=== PATIENT | female | born 1985 | race Caucasian/White ===

== ENCOUNTER 2017-01-18 11:14 | Observation (INO) | payer OTHER ==
--- NOTE | 2017-01-18 12:20 | OBPROG ---
OBG Labor Progress Note Assessment/Plan: Assessment: cat 1 fhr' denies pain/ irregular contractions seeing spots before her eyes "I just dont feel well" from the office to labor and delivery for elevated bp evaluation BP 130/84/140/90 here in labor and delivery waiting for [facility] lab results regular diet random P/C urine Plan:[facility] evaluation 01/18/17 12:17 Subjective: I am seeing spots. I am not feeling well. This has been going on for a few days. My friend took my bp at home and it was elevated. - Physical Exam General Appearance: WD/WN, alert, no apparent distress Respiratory: chest non-tender, lungs clear, normal breath sounds Cardiac/Chest: regular rate, rhythm Abdomen: normal bowel sounds Extremities: normal range of motion, Tee's sign (negative bilaterally) DTR- Lower Extremities: Knee (R): 1+, Knee (L): 1+ (no clonus bilaterally) Skin: normal color, warm/dry Neuro/Psych: no motor/sensory deficits, alert, normal mood/affect, oriented x 3 ICD10 Worksheet Patient Problems: Problems Problem Status Onset (spontaneous vaginal delivery) Acute
[2017-01-18 12:27] LABS: % IMMATURE GRANULYOCYTES 0.6 % (0.0-1.1); ABSOLUTE IMMATURE GRANULOCYTES 0.05 10^3/uL (0.00-0.10); ADD DIFF? NO; ADD MORPH? NO; ADD SCAN? NO; ATYPICAL LYMPHOCYTE FLAG 0 (0-99); FRAGMENT RBC FLAG 0 (0-99); HEMATOCRIT 37.9 % (38.0-47.0); HEMOGLOBIN 13.2 g/dL (12.6-16.3); LEFT SHIFT FLG 0 (0-99); LIPEMIA HEMOLYSIS FLAG 90 (0-99); MEAN CELL HEMOGLOBIN CONCENTR. 34.8 g/dL (32.4-36.7); MEAN CELL VOLUME 86.1 fL (81.5-99.8); MEAN PLATELET VOLUME 10.6 fL (8.7-11.7); PLATELET CLUMPS FLAG 0 (0-99); PLATELET COUNT 210 10^3/uL (150-400); RED CELL DISTRIBUTION WIDTH 11.9 % (11.5-15.2)
[2017-01-18 12:41] LABS: ALANINE AMINOTRANSFERASE 24 IU/L (9-52); ASPARTATE AMINOTRANSFERASE 18 IU/L (14-46); BILIRUBIN,TOTAL 0.4 mg/dL (0.1-1.4); BILIRUBIN-CONJUGATED 0.3 mg/dL (0.0-0.5); BILIRUBIN-UNCONJUGATED 0.1 mg/dL (0.0-1.1); CREATININE 0.6 mg/dL (0.6-1.0); GLOMERULAR FILTRATION RATE > 60; LACTATE DEHYDROGENASE 393 IU/L (313-618); URIC ACID 5.4 mg/dL (2.5-6.8)
[2017-01-18 13:13] LABS: COLOR PALE YELLOW; LEUKOCYTE ESTERASE,URINE NEGATIVE (NEGATIVE); NITRITE,URINE NEGATIVE (NEGATIVE)
[2017-01-18] MEDS ORDERED: BETAMETHASONE IM SYRINGE IM ONE (14:00)
[2017-01-18] MEDS ORDERED: TERBUTALINE SULFATE 1 MG/ML VIAL IV PRN (14:00)
[2017-01-18] MEDS ORDERED: OLIVE OIL 118 ML BTL MISC PRN (14:00)
[2017-01-18] MEDS ORDERED: LR 1,000 ML IV PRN (14:00)
[2017-01-18] MEDS ORDERED: EPSOM SALT 454 GM TP PRN (14:00)
[2017-01-18] MEDS ORDERED: IBUPROFEN 600 MG TAB PO PRN (14:00)
[2017-01-18] MEDS ORDERED: OXYTOCIN/RINGERS LACTATE 1,000 ML IV PRN (14:00)
[2017-01-18 14:03] LABS: RANDOM URINE PROTEIN 12 mg/dL (0-11)
--- NOTE | 2017-01-18 15:50 | GHP ---
[f rep st] HISTORY AND PHYSICAL DATE OF ADMISSION: 01/18/2017 Patient comes into the office with complaints of just not feeling right. [place]. Elevated blood pressures at home 140/90. States feeling positive movement. Denies contractions. Denies leaking of fluid. Has routinely Seen [facility] during her . With previous had one elevated BP broke bag of water same day and delivered. Patient is a 31-year-old, 2, para 1, with an EDC of 02/09/2017, which gives her a gestational age of 36 and 6/7 weeks. The patient has been seen at [facility] since 8 weeks gestation. MEDICAL HISTORY: Patient has a history of mild anxiety and depression in her first . Patient states once on labor and delivery that she had some elevated blood pressures on the day that she delivered. History of a hemorrhage with her first . FAMILY HISTORY: Benign. Social history no smoking, no drug use is GYNECOLOGICAL HISTORY: Noncontributory. PRESENT HISTORY: Patient has been followed for growth. LABORATORY DATA: At this time, I am unable to give you the labs. PHYSICAL ASSESSMENT: GENERAL: Patient is awake, alert, oriented x3. LUNGS: Clear bilaterally. GI: Bowel sounds are positive in all 4 quadrants. EXTREMITIES: DTRs are 1+ bilaterally with no clonus. Homans sign is negative bilaterally. Patient denies PIH symptoms other than an irregular headache with irregular scotomata. Patient denies epigastric pain. PLAN OF CARE: 1. Consult with Dr. Luz Elena Lopez. 2. Betamethasone x2 doses./ PIH labs wNL 3. Blood pressures for 4 hours and reassessment for plan of care. 4. BP came down over the 4 h of observation of BP 5, Fu tomorrow here for BP check and #2 betamethasone 6. Fu in office wednesday for visit 7. Patient ok with POC /[id number]/MODL MTDD
--- NOTE | 2017-01-18 18:01 | OBPROG ---
OBG Labor Progress Note Assessment/Plan: Assessment: cat 1 fhr' denies pain/ irregular contractions seeing spots before her eyes over the weekend denies while here in the hospital "I just dont feel well" from the office to labor and delivery for elevated bp evaluation BP 130/84/140/90 here in labor and deliverybetter after sitting around in labor and delivery pih labs wnl regular diet random P/C urine Plan:Better bp after several hours. Dischagre to home with instructions fu tomorrow for second betamethasone and bp evaluation. Fu wednesday in the office. Discussed resting at home and occasional bp checks when not feeling well. Discussed leaking bleeding cramping and pih symptoms verbalized understanding 01/18/17 12:17 01/18/17 17:58 Objective: 01/18/17 12:00 01/18/17 12:00 Uric Acid 5.4 mg/dL (2.5-6.8) 01/18/17 12:00 Total Bilirubin 0.4 mg/dL (0.1-1.4) 01/18/17 12:00 Conjugated Bilirubin 0.3 mg/dL (0.0-0.5) 01/18/17 12:00 Unconjugated Bilirubin 0.1 mg/dL (0.0-1.1) 01/18/17 12:00 AST 18 IU/L (14-46) 01/18/17 12:00 ALT 24 IU/L (9-52) 01/18/17 12:00 Lactate Dehydrogenase 393 IU/L (313-618) 01/18/17 12:00 Oxytocin Orders Assessment - Pre-Induction/Augmentation Assessment Gestational Age: 36 week(s) and 6 day(s) ICD10 Worksheet Patient Problems: Problems Problem Status Onset (spontaneous vaginal delivery) Acute
== END 2017-01-18 16:10 | disposition home or self-care (01) ==
LOC: FLD 11:14
PROVIDERS: ADMIT Advanced Practice Midwife; ATTEND Advanced Practice Midwife
DX: O26.893 Other specified pregnancy related conditions, third trimester (principal); R03.0 Elevated blood-pressure reading, without diagnosis of hypertension; H53.419 Scotoma involving central area, unspecified eye; R51 Headache; Z3A.36 36 weeks gestation of pregnancy
CPT/HCPCS: 59025; G0378; J0702

== ENCOUNTER 2017-01-19 11:03 | Observation (INO) | payer OTHER ==
[2017-01-19 12:28] LABS: ALANINE AMINOTRANSFERASE 23 IU/L (9-52); ASPARTATE AMINOTRANSFERASE 22 IU/L (14-46); BILIRUBIN,TOTAL 0.4 mg/dL (0.1-1.4); BILIRUBIN-CONJUGATED 0.3 mg/dL (0.0-0.5); BILIRUBIN-UNCONJUGATED 0.1 mg/dL (0.0-1.1); CREATININE 0.6 mg/dL (0.6-1.0); GLOMERULAR FILTRATION RATE > 60; LACTATE DEHYDROGENASE 417 IU/L (313-618); URIC ACID 5.4 mg/dL (2.5-6.8)
[2017-01-19 12:36] LABS: % IMMATURE GRANULYOCYTES 0.7 % (0.0-1.1); ABSOLUTE IMMATURE GRANULOCYTES 0.11 10^3/uL (0.00-0.10); ADD DIFF? NO; ADD MORPH? NO; ADD SCAN? NO; ATYPICAL LYMPHOCYTE FLAG 0 (0-99); FRAGMENT RBC FLAG 0 (0-99); HEMATOCRIT 38.4 % (38.0-47.0); HEMOGLOBIN 13.4 g/dL (12.6-16.3); LEFT SHIFT FLG 0 (0-99); LIPEMIA HEMOLYSIS FLAG 90 (0-99); MEAN CELL HEMOGLOBIN 30.2 pg (27.9-34.1); MEAN CELL HEMOGLOBIN CONCENTR. 34.9 g/dL (32.4-36.7); MEAN CELL VOLUME 86.5 fL (81.5-99.8); MEAN PLATELET VOLUME 10.8 fL (8.7-11.7); PLATELET CLUMPS FLAG 0 (0-99); PLATELET COUNT 233 10^3/uL (150-400); RED BLOOD CELL COUNT 4.44 10^6/uL (4.18-5.33); RED CELL DISTRIBUTION WIDTH 11.9 % (11.5-15.2)
[2017-01-19] MEDS ORDERED: BETAMETHASONE IM SYRINGE IM ONE (15:30)
== END 2017-01-19 15:20 | disposition home or self-care (01) ==
LOC: INTOOBSV 11:03 → FLD 11:03
PROVIDERS: ADMIT Obstetrics & Gynecology; ATTEND Obstetrics & Gynecology
DX: O99.89 Other specified diseases and conditions complicating pregnancy, childbirth and the puerperium (principal); Z3A.37 37 weeks gestation of pregnancy
CPT/HCPCS: 59025; G0378; J0702

== ENCOUNTER 2017-01-30 14:31 | Inpatient (IN) | payer OTHER ==
[2017-01-30] MEDS ORDERED: OXYTOCIN/RINGERS LACTATE 1,000 ML IV PRN (14:50)
[2017-01-30] MEDS ORDERED: OLIVE OIL 118 ML BTL MISC PRN (14:50)
[2017-01-30] MEDS ORDERED: EPSOM SALT 454 GM TP PRN (14:50)
[2017-01-30] MEDS ORDERED: LR 1,000 ML IV PRN (14:50)
[2017-01-30] MEDS ORDERED: TERBUTALINE SULFATE 1 MG/ML VIAL IV PRN (14:50)
[2017-01-30] MEDS ORDERED: LIDOCAINE 1% 300 MG/30 ML SDV ONE (15:05)
[2017-01-30] MEDS ORDERED: TERBUTALINE SULFATE 1 MG/ML VIAL ONE (15:06)
[2017-01-30] MEDS ORDERED: OLIVE OIL 118 ML BTL ONE (15:06)
[2017-01-30] MEDS ORDERED: MISOPROSTOL 200 MCG TAB ONE (15:06)
[2017-01-30] MEDS ORDERED: OXYTOCIN 10 UNIT/ML VIAL ONE (15:06)
[2017-01-30] MEDS ORDERED: AMMONIA AROMATIC 1 EACH AMP IH ONE (15:06)
[2017-01-30 15:09] LABS: % IMMATURE GRANULYOCYTES 0.5 % (0.0-1.1); ABSOLUTE IMMATURE GRANULOCYTES 0.05 10^3/uL (0.00-0.10); ADD DIFF? NO; ADD MORPH? NO; ADD SCAN? NO; ATYPICAL LYMPHOCYTE FLAG 10 (0-99); FRAGMENT RBC FLAG 0 (0-99); HEMATOCRIT 38.2 % (38.0-47.0); HEMOGLOBIN 13.6 g/dL (12.6-16.3); LEFT SHIFT FLG 0 (0-99); LIPEMIA HEMOLYSIS FLAG 90 (0-99); MEAN CELL HEMOGLOBIN 30.2 pg (27.9-34.1); MEAN CELL HEMOGLOBIN CONCENTR. 35.6 g/dL (32.4-36.7); MEAN CELL VOLUME 84.9 fL (81.5-99.8); PLATELET CLUMPS FLAG 20 (0-99); PLATELET COUNT 226 10^3/uL (150-400); RED CELL DISTRIBUTION WIDTH 11.7 % (11.5-15.2)
[2017-01-30] MEDS ORDERED: HEMABATE 250 MCG/1 ML AMP IM ONE (15:19)
[2017-01-30] MEDS ORDERED: METHYLERGONOVINE MAL 0.2 MG/ML INJ ONE (15:20)
[2017-01-30 15:23] LABS: ALANINE AMINOTRANSFERASE 34 IU/L (9-52); ASPARTATE AMINOTRANSFERASE 23 IU/L (14-46); BILIRUBIN,TOTAL 0.2 mg/dL (0.1-1.4); BILIRUBIN-UNCONJUGATED 0.2 mg/dL (0.0-1.1); CREATININE 0.8 mg/dL (0.6-1.0); GLOMERULAR FILTRATION RATE > 60; LACTATE DEHYDROGENASE 435 IU/L (313-618); URIC ACID 5.5 mg/dL (2.5-6.8)
--- NOTE | 2017-01-30 15:43 | OBGCSDC ---
General Delivery Information - General Info : 2 Para: 2 Abortions: 0 Delivery Physician/CNM: Luz Elena Lopez Admission Date: 01/30/17 Labs: Hct 38.2 % (38.0-47.0) 01/30/17 15:00 Vaginal - Diagnosis Labor: Spontaneous Presentation at Delivery: Vertex Rupture of Membranes Type: Artificial Amniotic Fluid Color: Clear Laceration: Other (Specify) (no tear, but pt requesting left labial revision) Repair: 4-0, Vicryl Delivery Events: None - Hospital Course Antepartum: LGA on 20 wk U/S and 92% at 30 wks, 73% at 36 wks. 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 Mild symptoms of scotomata, QUINTANILLA at 36+ wks - borderline B/Ps and rec'd BMZ treatment. Symptoms improved - 2x/wk NST reassuring. Intrapartum: SOOC regular <5 min after 1300. 7/90/-1 on admit, slow progress, FELIPE and then AROM : Doing great. Mod cramps managed with ibu Data [place] Delivery Date: 01/30/17 Delivery Time: 17:24 MELBA: 02/09/17 Gestational Age: 38 week(s) and 5 day(s) Sex of Infant: Female [place] Weight (gm): 3245 g Score (1 Min): 8 Score (5 Min): 9 Discharge Information - Discharge Information Discharge Medications: Ibuprofen Condition: Good Instruction/Follow Up: See Instruction Sheet, Six Weeks Discharge Physician/CNM: Luz Elena Lopez
[2017-01-30] MEDS ORDERED: fentaNYL 100 MCG/2 ML INJ ONE (16:11)
[2017-01-30] MEDS ORDERED: fentaNYL 2MCG/ML/BUP 0.1% RTU 100 ML BAG EP ONE (16:11)
[2017-01-30] MEDS ORDERED: PHENYLEPHRINE HCL 100 MCG/ML SYR ONE (16:15)
--- NOTE | 2017-01-30 16:19 | GHP ---
[f rep st] PREOP HISTORY AND PHYSICAL DATE OF ADMISSION: 01/30/2017 HISTORY: Upon admission the patient is a 31-year-old G2, P1, at 38 weeks and 4 days with an estimated due date of 02/09/2017 who presents in active labor. The patient had onset of contractions mildly through the night, however, felt they became more regular after 6 a.m., but still very tolerable and only 4 times an hour. After 1 p.m., there was a dramatic change and contractions became every 5 minutes and increasing in intensity. The patient had no leakage of fluid or no bleeding. Good movement. Upon presentation, the patient was 7-8 cm dilated, 90% effaced at -1 station. The patient's contractions are staying very regular every 2-3 minutes, and the patient has a natural plan at this point for managing the labor pain. CARE: The patient has been with [facility] since the 1st trimester. The patient's has been relatively uncomplicated until the last 2 weeks, and the patient has been observed for symptoms of scotomata and headache as well as an uneasy feeling, and the patient has had borderline blood pressures. She has been watched closely for -induced hypertension, and lab values have always remained normal. The patient has been having increased surveillance with twice weekly NSTs in the office, and her symptoms have improved. The patient did receive betamethasone at 36 weeks and 6 days due to these increasing symptoms. The patient also has been watched with serial ultrasounds due to an increased estimated weight at her 20-week ultrasound with a followup ultrasound at 32 weeks showing an estimated weight at the 92nd percentile. An additional ultrasound at 36 weeks revealed an estimated 73rd percentile with normal fluid. LABS: Maternal blood type O positive with negative antibody screen. RPR nonreactive. Rubella immune. Hepatitis B surface antigen negative. HIV negative. Toxoplasmosis titers were negative. Pap smear showed ASCUS with negative HPV and negative gonorrhea and chlamydia. 1-hour Glucola was normal with borderline iron of 36% that improved with iron replacement. PAST MEDICAL HISTORY: History of anxiety and depression, and the patient has had visits in the with Dr. Collins and therapist, Lena Devi regularly. The patient states she has had labile emotions and stress trying to balance caring for her toddler as well as going to vet school. PAST SURGICAL HISTORY: Noncontributory. PAST OBSTETRIC HISTORY: Term vaginal delivery. The patient did have hemorrhage after her 1st, but it was very protracted long labor. ALLERGIES: The patient has no known drug allergies. CURRENT MEDICATIONS: Only vitamins and occasional iron. SOCIAL HISTORY: The patient is , lives with her and her daughter. The patient is a nonsmoker. No alcohol or drug use. PHYSICAL EXAM: Upon admission, the patient is clinically afebrile. Initial blood pressure is 142/95 with a repeat in the 130s over 87. Initial PIH labs reveals a white count of 10.7, hemoglobin 13, hematocrit 38. PIH labs are normal with creatinine 0.8, and uric acid 5.5 with normal liver functions. GBS culture negative. heart tone monitoring reveals category 1 tracing with baseline in the 130s to 140s with good variability and accelerations. No decelerations noted. The patient is off the monitor at this time and being more active to manage labor. Contractions notably over 2-3 minutes. PELVIC: The cervix is rechecked, and the patient is still at 7 cm, 90% effaced at -1 station. Bag of water is palpable. Vertex presentation. ASSESSMENT: Intrauterine at 38 weeks and 4 days in active labor. Borderline blood pressures with some mild symptoms over the last 1-2 weeks. Elevated blood pressure on admission, but in active labor and difficult to check blood pressure between contractions. PIH labs are reassuring. PLAN: Expect in near future. /[id number]/MODL MTDD
--- NOTE | 2017-01-30 16:43 | POSTANESTH ---
Post Anesthetic Evaluation Cardiovascular Status: Normal, Stable Respiratory Status: Normal, Stable Level of Consciousness/Mental Status: Can Participate in Eval Pain Control: Adequate, Prn Tx Ordered Nausea/Vomiting Control: Adequate, Prn Tx Ordered Complications Possibly Related to Anesthesia: None Noted
[2017-01-30] MEDS ORDERED: LR 500 ML IV SCH (17:00)
--- NOTE | 2017-01-30 18:00 | OBPROG ---
OBG Labor Progress Note Assessment/Plan: Assessment: IUP at 38w4d active labor comf with FELIPE Plan: Expect soon, AROM clear 01/30/17 17:07 Subjective: Pt comf with FELIPE - some right sided pain. ok with AROM Objective: 01/30/17 15:00 01/30/17 15:00 Patient ABO/Rh O POSITIVE 01/30/17 15:00 Uric Acid 5.5 mg/dL (2.5-6.8) 01/30/17 15:00 Total Bilirubin 0.2 mg/dL (0.1-1.4) 01/30/17 15:00 Conjugated Bilirubin 0.0 mg/dL (0.0-0.5) 01/30/17 15:00 Unconjugated Bilirubin 0.2 mg/dL (0.0-1.1) 01/30/17 15:00 AST 23 IU/L (14-46) 01/30/17 15:00 ALT 34 IU/L (9-52) 01/30/17 15:00 Lactate Dehydrogenase 435 IU/L (313-618) 01/30/17 15:00 - SVE Dilation (cm): 9 Effacement (%): 100 Station: 0 Dilation Complete Date: 01/30/17 [place] Current Contraction Pattern: Regular (q2-3 min) FHR (bpm): 130 FHR Pattern Variability: Moderate FHR Category: 1 Membranes: AROM Amniotic Fluid Color: Clear - Procedures Non-surgical Procedures: Amniotomy Oxytocin Orders Assessment - Pre-Induction/Augmentation Assessment Gestational Age: 38 week(s) and 4 day(s) ICD10 Worksheet Patient Problems: Problems Problem Status Onset Normal labor Acute - ICD10 Problem Qualifiers (1) Normal labor
--- NOTE | 2017-01-30 18:06 | OBDEL ---
Info Type: Vaginal GBS+: No Indications for Delivery: Spontaneous Labor Vaginal Delivery - Labor and Delivery Onset of Contractions Date: 01/30/17 Onset of Contractions Time: 13:00 Onset of Contractions Type: Spontaneous Rupture of Membranes Date: 01/30/17 Rupture of Membranes Time: 16:54 Dilation Complete Date: 01/30/17 Dilation Complete Time: 17:09 Placenta Delivery Date: 01/30/17 Placenta Delivery Time: 17:32 Total Hours of Labor: 4 Non-surgical Procedures: Amniotomy Laceration: Other (Specify) (none, however pt requested labial revision of left inferior full labial edge) Repair: 4-0, Vicryl Vaginal Sponge Count Correct: Yes Vaginal Needle Count Correct: Yes Vaginal Sweep Performed: No EBL: 300 Operative Report - Delivery Surgeon: Luz Elena Lopez Data [place] Delivery Date: 01/30/17 Delivery Time: 17:24 MELBA: 02/09/17 Gestational Age: 38 week(s) and 4 day(s) Sex of Infant: Female (Zenaida) Score (1 Min): 8 Score (5 Min): 9 ICD10 Worksheet Patient Problems: Problems Problem Status Onset Normal labor Acute (spontaneous vaginal delivery) Acute - ICD10 Problem Qualifiers (1) Normal labor (2) (spontaneous vaginal delivery)
[2017-01-30] MEDS ORDERED: DOCUSATE SODIUM 100 MG CAP PO PRN (18:09)
[2017-01-30] MEDS ORDERED: HYDROCODONE/APAP 5/325 TAB PO PRN (18:09)
[2017-01-30] MEDS: IBUPROFEN 600 MG TAB PO PRN (19:05)
[2017-01-31] MEDS: IBUPROFEN 600 MG TAB PO PRN ×3 (00:54→13:50)
[2017-01-31 10:12] VITALS: BP 129/86; PULSE 95; RESP 16; TEMP 97.9
--- NOTE | 2017-01-31 11:32 | OBPP ---
Progress Note Assessment/Plan: Assessment: PPD 1 s/p Plan: D/C home 01/30/17 17:07 01/31/17 11:30 Subjective: Pt doing well. Bld is light, mod cramps. urinating fine. Baby is latching well. Considering D/C later today. bottom sore but managing with ibu. Objective: 01/30/17 15:00 01/30/17 15:00 Patient ABO/Rh O POSITIVE 01/30/17 15:00 Uric Acid 5.5 mg/dL (2.5-6.8) 01/30/17 15:00 Total Bilirubin 0.2 mg/dL (0.1-1.4) 01/30/17 15:00 Conjugated Bilirubin 0.0 mg/dL (0.0-0.5) 01/30/17 15:00 Unconjugated Bilirubin 0.2 mg/dL (0.0-1.1) 01/30/17 15:00 AST 23 IU/L (14-46) 01/30/17 15:00 ALT 34 IU/L (9-52) 01/30/17 15:00 Lactate Dehydrogenase 435 IU/L (313-618) 01/30/17 15:00 Temp Pulse Resp BP Pulse Ox 36.6 C 95 16 129/86 H 01/31/17 10:10 01/31/17 10:10 01/31/17 10:10 01/31/17 10:10 Uterine Position/Fundal Height: Umbilicus -2 Uterine Tone: Firm Physical Exam - Physical Exam General Appearance: WD/WN Abdomen: non-tender, soft Extremities: non-tender, pedal edema (none) Skin: warm/dry Neuro/Psych: normal mood/affect
== END 2017-01-31 18:20 | disposition home or self-care (01) | DRG 775 ==
LOC: FLD 14:31 → FOB 21:34
PROVIDERS: ADMIT Obstetrics & Gynecology; ATTEND Obstetrics & Gynecology
PROC: 0UQMXZZ Repair Vulva, External Approach (ICD-10-PCS; principal; 2017-01-30)
PROC: 10907ZC Drainage of Amniotic Fluid, Therapeutic from Products of Conception, Via Natural or Artificial Opening (ICD-10-PCS; principal; 2017-01-30)
PROC: 10E0XZZ Delivery of Products of Conception, External Approach (ICD-10-PCS; principal; 2017-01-30)
DX: O28.9 Unspecified abnormal findings on antenatal screening of mother (principal); R03.0 Elevated blood-pressure reading, without diagnosis of hypertension; Z3A.38 38 weeks gestation of pregnancy; Z37.0 Single live birth
CPT/HCPCS: J2210; J2370; J2590; J3010; J3105

== ENCOUNTER → 2018-04-19 | Outpatient (CLI) | payer OTHER | LOC: FIMAGING 18:24 | PROVIDERS: ATTEND Family Medicine | DX: M25.572 Pain in left ankle and joints of left foot (principal) ==